=== PATIENT | female | born 1995 | race Caucasian/White ===

== ENCOUNTER 2020-09-08 18:30 | Emergency (ER) | payer OTHER ==
[~2020-09-08] VITALS: Ht 165.1 cm; Wt 82.1 kg
[2020-09-08 18:38] VITALS: BP 143/90; Ht 165.1 cm; Wt 82.1 kg
== END 2020-09-08 21:22 | disposition home or self-care (01) ==
LOC: ED 18:30
DX: R51.9 Headache, unspecified (principal)
CPT/HCPCS: J0780; J1885; J8597; Q0163